=== PATIENT | female | born 1970 | race Caucasian/White ===

== ENCOUNTER 2021-04-15 17:42 | Emergency (ER) | payer OTHER ==
[~2021-04-15 17:42] MED LIST: NAPROSYN500 MG PO
== END 2021-04-15 17:52 | disposition left against medical advice (07) ==
LOC: ER1 17:42
DX: Z53.21 Procedure and treatment not carried out due to patient leaving prior to being seen by health care provider (principal)

== ENCOUNTER 2021-12-12 20:07 | Emergency (ER) | payer OTHER ==
[2021-12-12] MEDS ORDERED: IBUPROFEN600 MG PO (21:56)
== END 2021-12-12 22:30 | disposition home or self-care (01) ==
LOC: ER1 20:07
DX: S00.83XA Contusion of other part of head, initial encounter (principal); W22.8XXA Striking against or struck by other objects, initial encounter
CPT/HCPCS: 70140; 99283